=== PATIENT | male | born 1970 | race Caucasian/White ===

== ENCOUNTER 2023-07-09 14:18 | Emergency (ER) | payer OTHER ==
[2023-07-09 14:46] VITALS: BP 109/61; PULSE 70; RESP 17; TEMP 97.9; BMI 28.2
[2023-07-09] MEDS ORDERED: DIPHTH,PERTUSS(ACELL),TET 0.5 ML DISP.SYRIN IM ONE (15:49)
[2023-07-09] MEDS: TETANUS AND DIPHTHERIA TOXOID 0.5 ML DISP.SYRIN IM ONE (15:51)
== END 2023-07-09 16:08 | disposition home or self-care (01) ==
LOC: JERFT 14:18
PROC: 0HQ0XZZ Repair Scalp Skin, External Approach (ICD-10-PCS; principal; 2023-07-09)
PROC: 3E0234Z Introduction of Serum, Toxoid and Vaccine into Muscle, Percutaneous Approach (ICD-10-PCS; 2023-07-09)
DX: S01.01XA Laceration without foreign body of scalp, initial encounter (principal); W01.198A Fall on same level from slipping, tripping and stumbling with subsequent striking against other object, initial encounter
CPT/HCPCS: 99282-25

== ENCOUNTER 2023-07-16 09:46 | Emergency (ER) | payer OTHER ==
[2023-07-16 09:52] VITALS: BP 123/75; PULSE 71; RESP 16; TEMP 98.6; BMI 28.2
== END 2023-07-16 10:16 | disposition home or self-care (01) ==
LOC: JERFT 09:46
DX: Z48.02 Encounter for removal of sutures (principal)
CPT/HCPCS: 99281-25